=== PATIENT | female | born 1995 | race Caucasian/White ===

== ENCOUNTER 2017-07-12 03:59 | Emergency (ER) | payer MEDICAID ==
[~2017-07-12] VITALS: Ht 154.9 cm; Wt 59.0 kg
[~2017-07-12 03:59] MED LIST: METO-293 PO; NITR100C11 PO; PREN-88 PO
[2017-07-12] MEDS ORDERED: ONDANSETRON HCL 4MG/2ML VIAL IV STA (05:25)
[2017-07-12] MEDS ORDERED: KETOROLAC 30MG/ML VIAL IV STA (05:25)
[2017-07-12 06:05] LABS: BASOPHILS % 0.6 % (0.0-2.0); EOSINOPHILS % 4.1 % (0.0-5.0); HEMATOCRIT. 36.9 % (36.0-48.0); HEMOGLOBIN. 12.5 g/dL (12.0-16.0); LYMPHOCYTES % 36.3 % (20.0-50.0); MEAN CORPUSCULAR HEMOGLOBIN 28.1 pg (28.0-32.0); MEAN CORPUSCULAR VOLUME 83.2 fL (81.0-99.0); MEAN PLATELET VOLUME 8.7 fl (7.4-10.4); MONOCYTES % 7.1 % (2.0-8.0); NEUTROPHILS % 51.9 % (40.0-76.0); PLATELET 266 x1000/uL (130-400); RED BLOOD CELL COUNT 4.44 mill/uL (4.2-5.4); RED CELL DISTRIBUTION WIDTH 13.6 % (11.6-14.6)
[2017-07-12 06:06] LABS: CLARITY URINE CLEAR (CLEAR); COLOR URINE YELLOW (YELLOW); GLUCOSE URINE NEGATIVE (NEGATIVE); KETONES URINE NEGATIVE (NEGATIVE); LEUKOCYTE ESTERASE URINE 2+ (NEGATIVE); NITRITE URINE NEGATIVE (NEGATIVE); OCCULT BLOOD URINE NEGATIVE (NEGATIVE); PROTEIN URINE NEGATIVE (NEGATIVE); SPECIFIC GRAVITY URINE 1.025 (1.005-1.030); UROBILINOGEN URINE 0.2 E.U./dL (0.2-1.0)
[2017-07-12 06:12] LABS: PROTHROMBIN TIME 10.5 sec (9.4-11.6)
[2017-07-12 06:14] LABS: CHLORIDE 107 mEq/L (98-107)
[2017-07-12 06:23] LABS: CARBON DIOXIDE 25 mEq/L (21-32)
[2017-07-12 08:29] VITALS: BP 109/51
== END 2017-07-12 08:56 | disposition home or self-care (01) ==
LOC: ER 03:59
DX: R10.11 Right upper quadrant pain (principal); N39.0 Urinary tract infection, site not specified
CPT/HCPCS: 36415; 76705; 80053; 81001; 81025; 83690; 85025; 85610; 96374; 96375; 99285; J1885; J2405; Z7610

== ENCOUNTER 2020-08-26 13:35 | Emergency (ER) | payer MEDICAID ==
[~2020-08-26] VITALS: Ht 165.1 cm; Wt 74.0 kg
[2020-08-26] MEDS ORDERED: ACETAMINOPHEN 325MG TABLET PO ONE (14:30)
[2020-08-26 15:28] LABS: BASOPHILS % 0.5 % (0.0-2.0); EOSINOPHILS % 1.2 % (0.0-5.0); HEMATOCRIT. 41.2 % (36.0-48.0); HEMOGLOBIN. 13.7 g/dL (12.0-16.0); LYMPHOCYTES % 37.2 % (20.0-50.0); MEAN CORPUSCULAR VOLUME 83.8 fL (81.0-99.0); MONOCYTES % 5.9 % (2.0-8.0); NEUTROPHILS % 55.2 % (40.0-76.0); PLATELET 235 x1000/uL (130-400); RED BLOOD CELL COUNT 4.92 mill/uL (4.2-5.4)
[2020-08-26 15:29] LABS: CLARITY URINE CLEAR (CLEAR); COLOR URINE YELLOW (YELLOW); KETONES URINE TRACE (NEGATIVE); LEUKOCYTE ESTERASE URINE 1+ (NEGATIVE); NITRITE URINE NEGATIVE (NEGATIVE); OCCULT BLOOD URINE NEGATIVE (NEGATIVE); PROTEIN URINE NEGATIVE (NEGATIVE); SPECIFIC GRAVITY URINE 1.023 (1.005-1.030)
[2020-08-26 15:31] LABS: CHLORIDE 108 mEq/L (98-107)
[2020-08-26 15:42] LABS: B-HCG QUANTITATIVE < 1 mIU/mL (<3)
[2020-08-26 16:00] VITALS: BP 112/69
== END 2020-08-26 19:27 | disposition left against medical advice (07) ==
LOC: ER 13:48
DX: S09.90XA Unspecified injury of head, initial encounter (principal); N39.0 Urinary tract infection, site not specified; R55 Syncope and collapse; Z79.899 Other long term (current) drug therapy; W18.39XA Other fall on same level, initial encounter; Y93.89 Activity, other specified; Y92.89 Other specified places as the place of occurrence of the external cause; Y99.8 Other external cause status
CPT/HCPCS: 36415; 80053; 81003; 81025; 84702; 85025; 93005; 99284